=== PATIENT | female | born 1985 | race Caucasian/White ===

== ENCOUNTER → 2024-02-09 07:21 | Outpatient (REF) | payer OTHER, SELFPAY | LOC: DHCBC HW 07:21 | PROVIDERS: ATTENDING PHYSICIAN Internal Medicine Cardiovascular Disease; FAMILY PHYSICIAN Internal Medicine | DX: Q79.60 Ehlers-Danlos syndrome, unspecified (principal); I77.819 Aortic ectasia, unspecified site; R00.2 Palpitations | CPT/HCPCS: 93306 ==

== ENCOUNTER → 2025-08-05 14:38 | Outpatient (REF) | payer OTHER, SELFPAY | LOC: HWRAD 14:38 | PROVIDERS: ATTENDING PHYSICIAN Nurse Practitioner Family; FAMILY PHYSICIAN Nurse Practitioner Adult Health | DX: E04.1 Nontoxic single thyroid nodule (principal) | CPT/HCPCS: 76536 ==